=== PATIENT | male | born 1950 | race Caucasian/White ===

== ENCOUNTER → 2016-07-25 | Outpatient (CLI) | payer OTHER ==
--- NOTE | 2016-07-25 16:39 | DX ---
Lumbar Spine, Two Views on July 25, 2016 Indication: Congenital spondylolisthesis. Technique: Upright AP and lateral views. Comparison: Two-view lumbar spine dated March 28, 2016. Findings: The posterior fusion construct at L5-S1 remains well seated. Grade 1 anterolisthesis of L5 on S1 positioning of the dual posterior rods, bilateral pedicle screws in L5 and S1, and radiopaque i nterbody device are all unchanged. No new compression fracture. Disk heights are relatively well-pres erved above the level of the fusion. Minimal dextrocurvature apex at T12-L1 is unchanged. Impression: 1. Well-seated posterior fusion construct at L5-S1 with unchanged grade 2 spondylolisthesis of L5 on S1. 2. No fracture or evidence of hardware loosening.
== END ==
LOC: BMCIMAGING 15:07
DX: Z09 Encounter for follow-up examination after completed treatment for conditions other than malignant neoplasm (principal); Z98.1 Arthrodesis status

== ENCOUNTER → 2017-07-15 | Outpatient (CLI) | payer OTHER, MEDICARE | LOC: BMCIMAGING 16:11 | PROVIDERS: ATTEND Nurse Practitioner | DX: Z09 Encounter for follow-up examination after completed treatment for conditions other than malignant neoplasm (principal); Z98.1 Arthrodesis status ==

== ENCOUNTER → 2017-07-21 | Outpatient (CLI) | payer OTHER, MEDICARE | LOC: BMCIMAGING 14:51 | PROVIDERS: ATTEND Internal Medicine | DX: L05.91 Pilonidal cyst without abscess (principal) ==

== ENCOUNTER → 2018-07-19 | Outpatient (CLI) | payer OTHER, MEDICARE | LOC: BMCIMAGING 16:04 | PROVIDERS: ATTEND Physician Assistant | DX: Z98.1 Arthrodesis status (principal) ==